=== PATIENT | female | born 1965 | race Caucasian/White ===

== ENCOUNTER → 2016-11-02 | Outpatient (CLI) | payer OTHER ==
[2016-11-02 09:52] LABS: HEMOGLOBIN 14.9 gm/dl (12.3-15.3); RED BLOOD COUNT 5.07 M/UL (4.00-5.10); WHITE BLOOD COUNT 6.3 K/UL (4.5-11.0)
[2016-11-02 10:11] LABS: BUN/CREATININE RATIO 20 (0-10)
== END ==
LOC: LAB 08:46
PROVIDERS: Family Medicine
DX: E55.9 Vitamin D deficiency, unspecified (principal); E78.2 Mixed hyperlipidemia; M06.9 Rheumatoid arthritis, unspecified
CPT/HCPCS: 36415; 80053; 80061; 85025; 86141; 86200; 86431

== ENCOUNTER → 2020-11-04 | Outpatient (CLI) | payer MEDICARE, OTHER ==
[~2020-11-04] MED LIST: ALL DAY ALLERGY10 M2 PO; ECOTRIN81 MG PO; IMDUR ER TAB 3030 MG PO; INDERAL TAB 1010 MG PO; KLONOPIN TAB 00.5 MG PO; LOPRESSOR 25 MG25 MG PO; MINIPRESS1 MG PO; OMEPRAZOLE40 MG PO; PAXIL40 MG PO; REMERON15 MG PO; SEROQUEL TAB 2525 MG PO; SEROQUEL100 MG PO; VASCEPA1 GM PO
== END ==
LOC: EXRD 10:46
DX: M79.641 Pain in right hand (principal); M79.642 Pain in left hand; R06.02 Shortness of breath
CPT/HCPCS: 71046; 73130

== ENCOUNTER → 2020-12-07 | Outpatient (CLI) | payer MEDICARE, OTHER | LOC: EXRD 08:52 | DX: K76.0 Fatty (change of) liver, not elsewhere classified (principal); R79.89 Other specified abnormal findings of blood chemistry | CPT/HCPCS: 76700 ==